=== PATIENT | male | born 1955 | race Caucasian/White ===

== ENCOUNTER 2017-01-26 15:35 | Inpatient (IN) ==
[2017-01-26] MEDS ORDERED: LEVOFLOXACIN INJ 500 MG in PREMIX 1 EACH IV STA (16:01)
[2017-01-26] MEDS ORDERED: ALBUTEROL/IPRATROPIUM 3 ML NEB RESP TX STA (16:03)
[2017-01-26 16:17] LABS: Basophils % 0.3 % (0.0-0.8); Eosinophils % 0.2 % (0.00-10.9); Hematocrit 42.6 VOL% (42.0-52.0); Hemoglobin 13.7 GM/DL (14.0-18.0); Immature Granulocytes % 0.3 %; Immature Granulocytes Absolute 0.04 #; Lymphocytes # 2.2 10*3/uL (1.4-4.0); Lymphocytes % 18.7 % (21.2-54.2); Mean Corpuscular HGB Conc 32.2 GM/DL (32-36); Mean Corpuscular Hemoglobin 30 PG (27-34); Mean Platelet Volume 12.4 FL (9.6-12.0); Monocytes % 24.8 % (1.7-12.7); Neutrophils # 6.7 10*3/uL (1.4-7.4); Neutrophils % 55.7 % (38.7-73.9); Platelet Count 180 T/CUMM (130-400); Red Blood Count 4.58 MC/CUMM (3.8-5.5); Red Cell Distribution Width 14.6 % (9.3-17.3)
[2017-01-26 16:22] LABS: Apearance,Urine CLEAR (Clear); Bacteria,Urine Occasional /HPF (Few); Bilirubin,Urine Negative (Negative); Blood, Urine Negative (Negative); Glucose,Urine (UA) 50 mg/dL (Negative); Ketones,Urine 5 mg/dL (Negative); Mucus,Urine Occasional /LPF (Occasional); Nitrite,Urine Negative (Negative); Protein,Urine 100 MG/DL; RBC,Urine 2 /HPF (0-4); Squamous Epithelial Cell,Urine Occasional /HPF (0-10); Urine Color Yellow (Yellow); Urine Specific Gravity 1.024 (1.001-1.035); Urine Urobilinogen < 2.0 EU/DL (0.2-1.0); WBC,Urine 1 /HPF (0-6)
[2017-01-26] MEDS ORDERED: LEVOFLOXACIN INJ 100 ML IV ONE (16:22)
--- NOTE | 2017-01-26 16:26 | EKG Report ---
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
[2017-01-26 16:28] LABS: Bilirubin,Total 0.4 MG/DL (0.2-1.0); Magnesium 1.9 MG/DL (1.8-2.4); Osmolality,Calculated 280.5 MOS/KG (273-304); Potassium 4.3 MMOL/L (3.5-5.1); Total Protein 6.8 G/DL (6.4-8.3); Troponin I Only 0.019 NG/ML (0.00-0.045)
--- NOTE | 2017-01-26 16:37 | XRay Report ---
Portable chest Date: 01/26/2017 Clinical history: Shortness of breath Comparison: None Technique: Portable AP sitting chest Findings: The heart is normal in size. Calcified granulomata/nodes with probable chronic scarring. Minimal atelectasis. Minimal prominence of the pulmonary vasculature. Degenerative changes with old healed rib fractures. Impression: Old healed granulomatous disease with probable chronic scarring. Findings as can be seen with mild COPD with associated minimally prominent pulmonary vasculature and minimal atelectasis. PROCEDURE INTERPRETED AT [facility] DEPARTMENT OF RADIOLOGY Final Report Signed by: Dr. Lisa Eller
[2017-01-26 16:54] LABS: Band Neutrophils 1 % (0-10); Lymphocytes 26 % (20-55); Metamyelocytes 1 %; Platelet Estimate Adequate; Segmented Neutrophils 63 % (50-85); Total Cells Counted 100
[2017-01-26] MEDS ORDERED: ALBUTEROL 2.5 MG/3 ML NEB RESP TX PRN (17:10)
[2017-01-26] MEDS ORDERED: ACETAMINOPHEN 325 MG TABLET PO PRN (17:10)
[2017-01-26] MEDS ORDERED: ONDANSETRON 4 MG/2 ML VIAL IV PRN (17:10)
[2017-01-26] MEDS ORDERED: DEXTROSE 50% 25 GM/50 ML VIAL IV PRN ×2 (17:10)
[2017-01-26] MEDS ORDERED: GLUCAGON 1 MG VIAL IM PRN ×2 (17:10)
--- NOTE | 2017-01-26 17:25 | Hospitalist History & Physical ---
Assessment and Plan (1) COPD exacerbation Status: Acute Current Visit: Yes (2) Diabetes Status: Acute Current Visit: Yes (3) Bipolar 1 disorder Status: Acute Current Visit: Yes (4) Schizophrenia Status: Acute Current Visit: Yes (5) Parkinsonian tremor Status: Acute Assessment and plan: Our plan for this patient 1. Admit patient our service 2. Scheduled breathing treatments 3. Steroids 4. Sliding scale and Accu-Cheks 5. Home meds appropriate 6. Nicotine patch 7. Once patient's illness resolves transfer back to [facility] Current Visit: Yes History of Present Illness Chief complaint: Shortness of breath History of present illness: Mr. Gaines is a 61 year old male medical problems including COPD bipolar disorder schizoaffective disorder and diabetes who was in his normal state of poor health till yesterday. At that time patient started developing a wheezing and coughing. The cough is currently productive. It is yellow sputum. He denies any fever abdominal pain. Patient is very much a poor historian. He is a resident at a residential. Patient found to have a COPD exacerbation and I was consulted for admission Home Medications Medication Instructions Recorded Confirmed Type Unable To Obtain [Unable to Obtain] 01/26/17 01/26/17 History Allergies Allergy/AdvReac Type Severity Reaction Status Date / Time Penicillins Allergy Unknown/Unable Verified 01/26/17 15:44 to obtain Medical,Surgical,& Family Hx - Medical History Psychological: History of: Depression, Schizophrenia Endocrine: History of: Diabetes Mellitus (NIDDM) Respiratory: History of: COPD - Surgical History Additional Surgical History: Denies - Family History Additional Family History: Denies - Social History Smoking Status: Current every day smoker Frequency of Alcohol Use: Unknown Type of Drug Use: Unknown 12 point system: reviewed and no additional remarkable complaints except as stated Exam - Constitutional Vitals: Period Temp Pulse Resp BP Sys/High Pulse Ox Last 24 Hr 97 F-97 F 88-100 22-24 139-139/84-84 84 - General General appearance: alert, in no apparent distress - Head Head exam: Present: atraumatic, normocephalic - Eye Eye exam: Present: normal appearance, PERRL, EOMI - ENT ENT exam: Present: mucous membranes dry - Neck Neck exam: Present: normal inspection - Chest Chest inspection: Present: normal inspection, symmetric chest wall rise - Respiratory Respiratory exam: Present: Diffuse inspiratory and expiratory wheezes bilaterally - Cardiovascular Cardiovascular exam: Present: regular rate, normal rhythm, normal heart sounds - Abdominal Exam Abdominal exam: Present: soft. Positive bowel sounds - Extremities Exam Extremities exam: Present: normal inspection - Back Exam Back exam: Present: normal inspection - Neurological Exam Neurological exam: Present: alert, oriented X3 patient has a resting tremor consistent with Parkinson's - Psychiatric Psychiatric exam: Present: normal affect, normal mood Results - Labs CBC & BMP: 01/26/17 15:52 01/26/17 15:52
--- NOTE | 2017-01-26 17:31 | Emergency Department Note ---
Rashaad Barrera Brooke, am scribing for, and in the presence of, Linwood Castellanos MD 16:05. Emanuel Barrera Phillip K, MD, personally performed the services described in this documentation, ascribed by Lisette Neil in my presence, and it is both accurate and complete 731 . Arrival - Arrival Chief Complaint: Shortness of Breath ED Nursing Triage Note: pt was sent from [facility] for decreased appetite and wheezing and trouble breathing Mode of Arrival: Stretcher Limitations: No Limitations Source: Patient, EMS, RN Notes Reviewed Time Seen by Provider: 01/26/17 15:56 - History of Present Illness HPI Narrative: Patient is a 61 year old male brought into the ED, from [facility] and [facility] , with c/o shortness of breath that started yesterday. Patient says he has been wheezing and coughing. He says his cough is non-productive. He denies having any fever or abdominal pain. Patient says his "tongue is dry." He is able to ambulate without any problems. He says he has not had an appetite. Patient has PMHx of depression, schizophrenia, NIDDM, and COPD. Onset (ago): day(s) (2) Allergies/Adverse Reactions: Allergies Allergy/AdvReac Type Severity Reaction Status Date / Time Penicillins Allergy Unknown/Unable Verified 01/26/17 15:44 to obtain Home Medications: Home Medications Medication Instructions Recorded Confirmed Type Unable To Obtain [Unable to Obtain] 01/26/17 01/26/17 History Review of System - Review of System 12 point system: reviewed and no additional remarkable complaints except as stated - Review of System Constitutional: Present: other (no appetite). Absent: fever Head/Ears/Nose/Throat: Present: other (dry tongue) Respiratory: Present: cough (nonproductive), wheezing, other (shortness of breath). Absent: respiratory distress Gastrointestinal: Absent: abdominal pain Skin: Absent: rash Medical,Surgical,& Family Hx - Medical History Psychological: History of: Depression, Schizophrenia Endocrine: History of: Diabetes Mellitus (NIDDM) Respiratory: History of: COPD - Social History Smoking Status: Unknown if ever smoked Frequency of Alcohol Use: Unknown Type of Drug Use: Unknown Exam Vital Signs: Vital Signs Temperature 97 F L 01/26/17 15:41 Pulse Rate 88 01/26/17 16:46 Respiratory Rate 24 01/26/17 16:46 Blood Pressure 139/84 01/26/17 15:41 O2 Sat by Pulse Oximetry 84 L 01/26/17 15:41 - General General appearance: alert, in no apparent distress - Head Head exam: Present: atraumatic, normocephalic - Eye Eye exam: Present: normal appearance, PERRL, EOMI - ENT ENT exam: Present: mucous membranes dry - Neck Neck exam: Present: normal inspection - Chest Chest inspection: Present: normal inspection, symmetric chest wall rise - Respiratory Respiratory exam: Present: rales (on the right), wheezes (diffuse inspiratory and expiratory wheezes) - Cardiovascular Cardiovascular exam: Present: regular rate, normal rhythm, normal heart sounds - Abdominal Exam Abdominal exam: Present: soft. Absent: distention, tenderness - Extremities Exam Extremities exam: Present: normal inspection - Back Exam Back exam: Present: normal inspection - Neurological Exam Neurological exam: Present: alert, oriented X3 - Psychiatric Psychiatric exam: Present: normal affect, normal mood - Skin Skin exam: Present: warm, dry, intact, normal color Results - Labs CBC & BMP: 01/26/17 15:52 01/26/17 15:52 Lab Results: I have reviewed the patients labs Labs: Laboratory Tests 01/26/17 01/26/17 01/26/17 15:52 15:52 15:52 Hgb 13.7 L MPV 12.4 H Lymph % (Auto) 18.7 L Mora % (Auto) 24.8 H Mora # (Auto) 3.0 H Carbon Dioxide 34 H Glucose 158 H Calcium 8.0 L ALT 12 L Albumin 3.0 L Globulin 3.8 H Albumin/Globulin Ratio 0.7 L Urine Urobilinogen < 2.0 H Laboratory Tests 01/26/17 15:52 B-Natriuretic Peptide 45 - Diagnostic Findings Procedure: Chest x-ray: report reviewed by me (Old healed granulomatous disease with probable chronic scarring. Findings as can be seen with mild COPD with associated minimally prominent pulmonary vasculature and minimal atelectasis.) Disposition Clinical Impression: Acute exacerbation of chronic obstructive airways disease Case discussed with: patient Disposition: Still a Patient Additional Instructions: Admit to the hospitalist.
[2017-01-26] MEDS: ALBUTEROL/IPRATROPIUM 3 ML NEB RESP TX SCH (19:00)
[2017-01-26] MEDS: ENOXAPARIN 40 MG/0.4 ML SYRINGE SUBCUT SCH (20:52)
[2017-01-26] MEDS: methylPREDNISolone SOD SUC 40 MG/1 ML VIAL IV SCH (20:52)
[2017-01-26] MEDS: INSULIN REGULAR 100 UNIT/ML SUBCUT SCH (22:11)
[2017-01-26] MEDS: OLANZapine 5 MG TABLET PO SCH (22:17)
[2017-01-26] MEDS: DIVALPROEX 500 MG TABLET PO SCH (22:17)
[2017-01-27] MEDS: ALBUTEROL/IPRATROPIUM 3 ML NEB RESP TX SCH ×4 (00:47→20:08)
[2017-01-27] MEDS: methylPREDNISolone SOD SUC 40 MG/1 ML VIAL IV SCH ×3 (05:22→20:26)
[2017-01-27 06:12] LABS: Basophils % 0.3 % (0.0-0.8); Hematocrit 42.5 VOL% (42.0-52.0); Hemoglobin 13.3 GM/DL (14.0-18.0); Immature Granulocytes % 0.4 %; Immature Granulocytes Absolute 0.04 #; Lymphocytes # 1.7 10*3/uL (1.4-4.0); Lymphocytes % 19.3 % (21.2-54.2); Mean Corpuscular HGB Conc 31.3 GM/DL (32-36); Mean Corpuscular Hemoglobin 30 PG (27-34); Mean Corpuscular Volume 94.7 FL (87-102); Mean Platelet Volume 11.6 FL (9.6-12.0); Monocytes # 1.3 10*3/uL (0.11-0.8); Monocytes % 14.6 % (1.7-12.7); Neutrophils # 5.9 10*3/uL (1.4-7.4); Neutrophils % 65.4 % (38.7-73.9); Platelet Count 158 T/CUMM (130-400); Red Blood Count 4.49 MC/CUMM (3.8-5.5); Red Cell Distribution Width 14.4 % (9.3-17.3)
[2017-01-27 06:55] LABS: Albumin 2.8 G/DL (3.4-5.0); Bilirubin,Total 0.6 MG/DL (0.2-1.0); Osmolality,Calculated 281.7 MOS/KG (273-304); Potassium 4.4 MMOL/L (3.5-5.1); Total Protein 6.5 G/DL (6.4-8.3)
[2017-01-27] MEDS: INSULIN REGULAR 100 UNIT/ML SUBCUT SCH ×4 (10:17→20:25)
[2017-01-27] MEDS: NICOTINE 21 MG/24 HR PATCH TRANSDERM SCH (10:18)
[2017-01-27] MEDS: OLANZapine 5 MG TABLET PO SCH ×2 (10:19→20:10)
[2017-01-27] MEDS: PANTOPRAZOLE 40 MG TABLET PO SCH (10:20)
[2017-01-27] MEDS: DIVALPROEX 500 MG TABLET PO SCH ×2 (10:20→20:10)
[2017-01-27] MEDS: DESITIN 4OZ/NYSTATIN 15 GRAM MIXTURE PASTE TOP SCH ×2 (12:21→20:12)
--- NOTE | 2017-01-27 14:36 | Hospitalist Progress Note ---
Assessment and Plan - Time spent with patient Time spent with patient: Greater than 30 minutes (1) Acute exacerbation of chronic obstructive airways disease Status: Acute Assessment and plan: Significant wheezing. On facemask with supplemental o2. Continue current management and increase steroid dose. Current Visit: Yes (2) Bipolar 1 disorder Status: Acute Assessment and plan: Continue meds. Current Visit: Yes (3) Diabetes Status: Acute Assessment and plan: Continue current management. Current Visit: Yes (4) Parkinsonian tremor Status: Acute Assessment and plan: Continue current management. Current Visit: Yes (5) Schizophrenia Status: Acute Current Visit: Yes Hospitalist: Subjective Interval history: No complaints or overnight events. Exam - Constitutional Vitals: Period Temp Pulse Resp BP Sys/High Pulse Ox Last 24 Hr 97.0 F-98.9 F 77-101 16-20 119-145/46-76 87-96 General appearance: no acute distress - Head Head exam: Present: normocephalic, atraumatic - Eye Eye exam: Present: EOMI Pupils: Present: KYLER - ENT ENT exam: Present: normal exam - Neck Neck exam: Present: normal inspection - Respiratory Respiratory exam: Present: prolonged expiratory phase, wheezes. Absent: rhonchi - Cardiovascular Cardiovascular exam: Present: regular rate and rhythm. Absent: gallop, rubs, systolic murmur - GI/Abdominal GI/Abdominal exam: Present: normal bowel sounds, soft. Absent: distended, firm , guarding, tenderness, rebound - Extremities Exam Extremities exam: Present: normal inspection. Absent: calf tenderness, edema Results - Labs CBC & BMP: 01/27/17 05:41 01/27/17 05:41 Lab Results: I have reviewed the past 24 hour labs
[2017-01-27] MEDS: ENOXAPARIN 40 MG/0.4 ML SYRINGE SUBCUT SCH (20:11)
[2017-01-27] MEDS: LEVOFLOXACIN INJ 750 MG in PREMIX 1 EACH IV SCH (20:26)
[2017-01-28] MEDS: ALBUTEROL/IPRATROPIUM 3 ML NEB RESP TX SCH ×4 (01:01→19:59)
[2017-01-28] MEDS: methylPREDNISolone SOD SUC 40 MG/1 ML VIAL IV SCH ×3 (04:51→22:03)
--- NOTE | 2017-01-28 07:17 | XRay Report ---
Referring Physician: Miguelito Bryant Exam: XR chest 1V Date: January 28, 2017 at 5:00 AM Reason: Shortness of breath Comparison: Chest one view portable January 26, 2017 Findings: The cardiac silhouette is normal in size. A calcified granuloma and probable minimal scarring are seen at the right lung base. No focal consolidation, pneumothorax or pleural effusion is identified. The osseous structures appear stable. Impression: No acute pulmonary process is identified. PROCEDURE INTERPRETED AT [facility] DEPARTMENT OF RADIOLOGY Final Report Signed by: Dr. All Verduzco
[2017-01-28] MEDS: DIVALPROEX 500 MG TABLET PO SCH ×2 (09:39→22:03)
[2017-01-28] MEDS: PANTOPRAZOLE 40 MG TABLET PO SCH (09:39)
[2017-01-28] MEDS: INSULIN REGULAR 100 UNIT/ML SUBCUT SCH ×4 (09:39→22:02)
[2017-01-28] MEDS: NICOTINE 21 MG/24 HR PATCH TRANSDERM SCH (09:40)
[2017-01-28] MEDS: DESITIN 4OZ/NYSTATIN 15 GRAM MIXTURE PASTE TOP SCH ×2 (09:40→22:13)
[2017-01-28] MEDS: OLANZapine 5 MG TABLET PO SCH ×2 (10:50→22:03)
--- NOTE | 2017-01-28 14:54 | Hospitalist Progress Note ---
Assessment and Plan - Time spent with patient Time spent with patient: Greater than 30 minutes (1) Acute exacerbation of chronic obstructive airways disease Status: Acute Assessment and plan: Wheezing appears to be improved however will need to continue current management. He will require further hospitalization for management of wheezing. Current Visit: Yes (2) Bipolar 1 disorder Status: Acute Assessment and plan: Continue meds. Current Visit: Yes (3) Diabetes Status: Acute Assessment and plan: Increase sliding scale insulin to high-dose. Current Visit: Yes (4) Parkinsonian tremor Status: Acute Assessment and plan: Continue current management. Current Visit: Yes (5) Schizophrenia Status: Acute Current Visit: Yes Hospitalist: Subjective Interval history: Patient has no complaints. No overnight events. Exam - Constitutional Vitals: Period Temp Pulse Resp BP Sys/High Pulse Ox Last 24 Hr 96.5 F-97.9 F 67-83 16-22 130-144/65-81 90-97 General appearance: no acute distress - Head Head exam: Present: normocephalic, atraumatic - Eye Eye exam: Present: EOMI Pupils: Present: KYLER - ENT ENT exam: Present: normal exam - Neck Neck exam: Present: normal inspection - Respiratory Respiratory exam: Present: wheezes, other (Coarse breath sounds bilaterally.). Absent: rhonchi - Cardiovascular Cardiovascular exam: Present: regular rate and rhythm. Absent: gallop, rubs, systolic murmur - GI/Abdominal GI/Abdominal exam: Present: normal bowel sounds, soft. Absent: distended, firm , guarding, tenderness, rebound - Extremities Exam Extremities exam: Present: normal inspection. Absent: calf tenderness, edema Results - Labs CBC & BMP: 01/27/17 05:41 01/27/17 05:41 Lab Results: I have reviewed the past 24 hour labs
[2017-01-28] MEDS: LEVOFLOXACIN INJ 750 MG in PREMIX 1 EACH IV SCH (22:04)
[2017-01-28] MEDS: ENOXAPARIN 40 MG/0.4 ML SYRINGE SUBCUT SCH (22:05)
[2017-01-29] MEDS: ALBUTEROL/IPRATROPIUM 3 ML NEB RESP TX SCH ×4 (00:20→20:09)
[2017-01-29 06:35] LABS: Calcium 8.4 MG/DL (8.5-10.1); Osmolality,Calculated 295.1 MOS/KG (273-304)
[2017-01-29] MEDS: methylPREDNISolone SOD SUC 40 MG/1 ML VIAL IV SCH ×3 (06:41→20:34)
[2017-01-29 06:47] LABS: Basophils % 0.1 % (0.0-0.8); Hematocrit 43.4 VOL% (42.0-52.0); Hemoglobin 13.6 GM/DL (14.0-18.0); Immature Granulocytes % 1.6 %; Immature Granulocytes Absolute 0.21 #; Lymphocytes # 1.7 10*3/uL (1.4-4.0); Mean Corpuscular HGB Conc 31.3 GM/DL (32-36); Mean Corpuscular Hemoglobin 30 PG (27-34); Mean Corpuscular Volume 94.8 FL (87-102); Mean Platelet Volume 12.5 FL (9.6-12.0); Monocytes % 7.5 % (1.7-12.7); Neutrophils # 10.4 10*3/uL (1.4-7.4); Neutrophils % 77.8 % (38.7-73.9); Platelet Count 174 T/CUMM (130-400); Red Blood Count 4.58 MC/CUMM (3.8-5.5); Red Cell Distribution Width 13.5 % (9.3-17.3); White Blood Count 13.4 T/CUMM (4-12)
[2017-01-29 07:21] LABS: Band Neutrophils 2 % (0-10); Hypochromasia Slight; Lymphocytes 10 % (20-55); Segmented Neutrophils 74 % (50-85); Total Cells Counted 100
[2017-01-29] MEDS: INSULIN REGULAR 100 UNIT/ML SUBCUT SCH ×4 (09:06→20:44)
[2017-01-29] MEDS: OLANZapine 5 MG TABLET PO SCH ×2 (09:21→20:32)
[2017-01-29] MEDS: DIVALPROEX 500 MG TABLET PO SCH ×2 (09:21→20:32)
[2017-01-29] MEDS: PANTOPRAZOLE 40 MG TABLET PO SCH (09:21)
[2017-01-29] MEDS: NICOTINE 21 MG/24 HR PATCH TRANSDERM SCH (09:21)
[2017-01-29] MEDS: DESITIN 4OZ/NYSTATIN 15 GRAM MIXTURE PASTE TOP SCH ×2 (09:22→20:33)
[2017-01-29] MEDS ORDERED: INSULIN GLARGINE 100 UNIT/ML SUBCUT SCH (10:30)
--- NOTE | 2017-01-29 12:22 | Hospitalist Progress Note ---
Assessment and Plan - Time spent with patient Time spent with patient: Greater than 30 minutes (1) Acute exacerbation of chronic obstructive airways disease Status: Acute Assessment and plan: Wheezing appears to be improved however will need to continue current management. He will require further hospitalization for management of wheezing. Current Visit: Yes (2) Bipolar 1 disorder Status: Acute Assessment and plan: Continue meds. Current Visit: Yes (3) Diabetes Status: Acute Assessment and plan: Given the steroids, his sugars have risen. Sliding scale insulin was increased to high-dose. Will add lantus 10 units daily. Current Visit: Yes (4) Parkinsonian tremor Status: Acute Assessment and plan: Continue current management. Current Visit: Yes (5) Schizophrenia Status: Acute Current Visit: Yes Hospitalist: Subjective Interval history: No complaints or overnight events. States he feels much better this morning. Exam - Constitutional Vitals: Period Temp Pulse Resp BP Sys/High Pulse Ox Last 24 Hr 96.4 F-98.1 F 66-89 16-20 108-137/61-71 90-99 General appearance: no acute distress - Head Head exam: Present: normocephalic, atraumatic - Eye Eye exam: Present: EOMI Pupils: Present: KYLER - ENT ENT exam: Present: normal exam - Neck Neck exam: Present: normal inspection - Respiratory Respiratory exam: Present: wheezes (slightly improved compared to yesterday). Absent: rhonchi - Cardiovascular Cardiovascular exam: Present: regular rate and rhythm. Absent: gallop, rubs, systolic murmur - GI/Abdominal GI/Abdominal exam: Present: normal bowel sounds, soft. Absent: distended, firm , guarding, tenderness, rebound - Extremities Exam Extremities exam: Present: normal inspection. Absent: calf tenderness, edema Results - Labs CBC & BMP: 01/29/17 04:00 01/29/17 04:00 Lab Results: I have reviewed the past 24 hour labs
[2017-01-29] MEDS: ENOXAPARIN 40 MG/0.4 ML SYRINGE SUBCUT SCH (20:31)
[2017-01-29] MEDS: LEVOFLOXACIN INJ 750 MG in PREMIX 1 EACH IV SCH (20:33)
[2017-01-30] MEDS: ALBUTEROL/IPRATROPIUM 3 ML NEB RESP TX SCH ×5 (00:22→19:16)
[2017-01-30] MEDS: methylPREDNISolone SOD SUC 40 MG/1 ML VIAL IV SCH ×3 (04:13→20:11)
[2017-01-30 07:00] LABS: Basophils % 0.2 % (0.0-0.8); Hematocrit 42.8 VOL% (42.0-52.0); Hemoglobin 13.5 GM/DL (14.0-18.0); Immature Granulocytes % 1.7 %; Immature Granulocytes Absolute 0.18 #; Lymphocytes # 2.2 10*3/uL (1.4-4.0); Lymphocytes % 20.9 % (21.2-54.2); Mean Corpuscular HGB Conc 31.5 GM/DL (32-36); Mean Corpuscular Hemoglobin 29 PG (27-34); Mean Corpuscular Volume 92.6 FL (87-102); Mean Platelet Volume 12.8 FL (9.6-12.0); Monocytes # 0.6 10*3/uL (0.11-0.8); Monocytes % 5.7 % (1.7-12.7); Neutrophils # 7.5 10*3/uL (1.4-7.4); Neutrophils % 71.5 % (38.7-73.9); Platelet Count 157 T/CUMM (130-400); Red Blood Count 4.62 MC/CUMM (3.8-5.5); Red Cell Distribution Width 13.9 % (9.3-17.3); White Blood Count 10.5 T/CUMM (4-12)
[2017-01-30 07:29] LABS: Atypical Lymphocytes Moderate; Band Neutrophils 4 % (0-10); Hypochromasia Slight; Lymphocytes 27 % (20-55); Myelocytes 1 %; Platelet Estimate Adequate; Segmented Neutrophils 65 % (50-85); Target Cells Slight; Total Cells Counted 100
[2017-01-30 07:33] LABS: Osmolality,Calculated 292.3 MOS/KG (273-304); Potassium 4.7 MMOL/L (3.5-5.1)
[2017-01-30] MEDS ORDERED: INSULIN GLARGINE 100 UNIT/ML SUBCUT SCH (09:00)
[2017-01-30] MEDS: DIVALPROEX 500 MG TABLET PO SCH ×2 (11:04→20:10)
[2017-01-30] MEDS: OLANZapine 5 MG TABLET PO SCH ×2 (11:04→20:10)
[2017-01-30] MEDS: PANTOPRAZOLE 40 MG TABLET PO SCH (11:05)
[2017-01-30] MEDS: INSULIN REGULAR 100 UNIT/ML SUBCUT SCH ×4 (11:05→20:16)
[2017-01-30] MEDS: INSULIN GLARGINE 100 UNIT/ML SUBCUT SCH (11:05)
[2017-01-30] MEDS: NICOTINE 21 MG/24 HR PATCH TRANSDERM SCH (11:06)
--- NOTE | 2017-01-30 13:50 | Hospitalist Progress Note ---
Assessment and Plan - Time spent with patient Time spent with patient: Greater than 30 minutes (1) Acute exacerbation of chronic obstructive airways disease Status: Acute Assessment and plan: Wheezing appears to be improved however will need to continue current management. He will require continued hospitalization however expect DC in 24- 48 hours. Current Visit: Yes (2) Bipolar 1 disorder Status: Acute Assessment and plan: Continue meds. Current Visit: Yes (3) Diabetes Status: Acute Assessment and plan: Sliding scale insulin was increased to high-dose. Will continue lantus, but increase it to 15 units daily. Current Visit: Yes (4) Parkinsonian tremor Status: Acute Assessment and plan: Continue current management. Current Visit: Yes (5) Schizophrenia Status: Acute Current Visit: Yes Hospitalist: Subjective Interval history: No complaints or overnight events. Exam - Constitutional Vitals: Period Temp Pulse Resp BP Sys/High Pulse Ox Last 24 Hr 97.1 F-97.8 F 64-79 16-20 129-157/59-75 91-99 General appearance: no acute distress - Head Head exam: Present: normocephalic, atraumatic - Eye Eye exam: Present: EOMI Pupils: Present: KYLER - ENT ENT exam: Present: normal exam - Neck Neck exam: Present: normal inspection - Respiratory Respiratory exam: Present: wheezes (Still present, bilateral, but improved from yesterday). Absent: rhonchi - Cardiovascular Cardiovascular exam: Present: regular rate and rhythm. Absent: gallop, rubs, systolic murmur - GI/Abdominal GI/Abdominal exam: Present: normal bowel sounds, soft. Absent: distended, firm , guarding, tenderness, rebound - Extremities Exam Extremities exam: Present: normal inspection. Absent: calf tenderness, edema Results - Labs CBC & BMP: 01/30/17 05:47 01/30/17 05:47 Lab Results: I have reviewed the past 24 hour labs
[2017-01-30] MEDS: ENOXAPARIN 40 MG/0.4 ML SYRINGE SUBCUT SCH (20:09)
[2017-01-30] MEDS: LEVOFLOXACIN INJ 750 MG in PREMIX 1 EACH IV SCH (20:11)
[2017-01-30] MEDS: DESITIN 4OZ/NYSTATIN 15 GRAM MIXTURE PASTE TOP SCH (20:12)
[2017-01-31] MEDS: ALBUTEROL/IPRATROPIUM 3 ML NEB RESP TX SCH ×3 (00:28→14:48)
[2017-01-31] MEDS: methylPREDNISolone SOD SUC 40 MG/1 ML VIAL IV SCH ×2 (04:32→14:44)
[2017-01-31] MEDS: DESITIN 4OZ/NYSTATIN 15 GRAM MIXTURE PASTE TOP SCH ×2 (08:34→09:50)
[2017-01-31] MEDS: INSULIN REGULAR 100 UNIT/ML SUBCUT SCH ×3 (09:38→16:45)
[2017-01-31] MEDS: PANTOPRAZOLE 40 MG TABLET PO SCH (09:39)
[2017-01-31] MEDS: INSULIN GLARGINE 100 UNIT/ML SUBCUT SCH (09:39)
[2017-01-31] MEDS: DIVALPROEX 500 MG TABLET PO SCH (09:39)
[2017-01-31] MEDS: OLANZapine 5 MG TABLET PO SCH (09:39)
[2017-01-31] MEDS: NICOTINE 21 MG/24 HR PATCH TRANSDERM SCH (09:40)
--- NOTE | 2017-01-31 14:16 | Discharge Summary ---
Hospital Course - Hospital Course Hospital Course: Mr. Gaines was admitted for evaluation and management of COPD with exacerbation. He was initiated on IV steroids and IV antibiotics. His symptoms of shortness of breath improved. He was managed with increasing his dose of sliding scale insulin and long-acting while he was on IV steroids. Patient still had wheezing however this was felt to be upper airway as it was prominent in his neck and during deep inspiration with his mouth open. Wheezing was noted to diminish in his lungs. This implied the wheezing was referred from his upper airway. IV steroids were burst dosing. Antibiotics will be continued at [facility]. By discharge, he had met maximum benefit of hospitalization. I spent 35 minutes coordinating this discharge. - Time spent with patient Time with patient DS: Greater than 30 minutes Diagnosis - Discharge Diagnosis (1) Acute exacerbation of chronic obstructive airways disease Status: Acute (2) Bipolar 1 disorder Status: Acute (3) Diabetes Status: Acute (4) Parkinsonian tremor Status: Acute (5) Schizophrenia Status: Acute Discharge Plan - Discharge Data Disposition: Disch To Home/Self Care Condition at Discharge: Stable Discharge Diet: advance to your usual diet Activity: resume usual activities as tolerated - Discharge Medications New Budesonide/Formoterol 160-4.5 [Symbicort 160-4.5] 2 puff INH BID #1 inhaler Levofloxacin Tab [Levaquin Tab] 750 mg PO DAILY #4 tablet Continue OLANZapine [Olanzapine] 20 mg PO DAILY OLANZapine [Olanzapine] 10 mg PO BEDTIME Divalproex Sodium 500 mg PO DAILY Benztropine Tab [Cogentin Tab] 1 mg PO BID Metformin HCl 500 mg PO BID Divalproex Sodium 1,000 mg PO BEDTIME Divalproex Sodium 250 mg PO DAILY Albuterol Sulfate [Albuterol Neb] 2.5 mg INH Q4HR PRN PRN Reason: Shortness Of Breath/Wheezing Blood Sugar Diagnostic [Accu-Chek Guide Test Strip] See Protocol SUBCUT BIDAC Discontinued Doxycycline Hyclate 100 mg PO BID - Follow Up or Referral - Forms/Instructions Instructions: Chronic Obstructive Pulmonary Disease (DC) Exam - Constitutional Vitals: Period Temp Pulse Resp BP Sys/High Pulse Ox Last 24 Hr 96.7 F-98.7 F 64-93 18-20 129-148/69-90 90-99 General appearance: normal weight, no acute distress - Head Head exam: Present: normal inspection, normocephalic, atraumatic - Eye Eye exam: Present: EOMI Pupils: Present: KYLER - ENT ENT exam: Present: normal exam - Neck Neck exam: Present: normal inspection - Respiratory Respiratory exam: Present: clear to auscultation bilaterally, stridor. Absent: accessory muscle use, prolonged expiratory phase, wheezes - Cardiovascular Cardiovascular exam: Present: regular rate and rhythm. Absent: bradycardia, irregular rhythm, systolic murmur - GI/Abdominal GI/Abdominal exam: Present: normal bowel sounds. Absent: ascites, hypoactive bowel sounds, tenderness - Extremities Exam Extremities exam: Present: normal inspection Discharge Results Procedures and tests throughout hospitalization: Pending Orders 01/26/17 16:14 Blood Culture Stat Labs on day of discharge: Labs from last 24 hours 01/31/17 01/30/17 01/30/17 07:58 20:08 15:28 POC Glucose 230 H 367 H 349 H 01/30/17 01/30/17 10:55 07:21 POC Glucose 350 H 262 H Preliminary micro results at discharge 01/26/17 16:14 Blood Culture - Preliminary Blood No growth at 3 days 01/26/17 15:52 Blood Culture - Preliminary Blood No growth at 3 days DS: Provider Date of admission: 01/26/17 16:59 Primary care physician: . No PCP Attending physician on admission: Miguelito Bryant MD Discharging clinician: Mara Andrew MD Expected date of discharge: 01/31/17
[2017-01-31 18:30] VITALS: BP 155/81
== END 2017-01-31 18:26 | DRG 192 ==
LOC: N.ED 15:35 → SUATTDRO 16:59 → N.EDINP 16:59 → N.2E 19:04
PROVIDERS: ADMIT Internal Medicine; ATTEND Internal Medicine